=== PATIENT | female | born 1985 | race African-American/Black ===

== ENCOUNTER 2019-11-18 15:32 | Emergency (ER) | payer MEDICAID, OTHER ==
[~2019-11-18] VITALS: Ht 162.6 cm; Wt 76.0 kg
[2019-11-18] MEDS ORDERED: ACETAMINOPHEN 325MG TABLET PO ONE (18:15)
[2019-11-18] MEDS ORDERED: KETOROLAC 30MG/ML VIAL IM ONE (18:15)
[2019-11-18 18:38] LABS: BASOPHILS % 0.8 % (0.0-2.0); EOSINOPHILS % 0.3 % (0.0-5.0); HEMATOCRIT. 36.4 % (36.0-48.0); HEMOGLOBIN. 11.9 g/dL (12.0-16.0); LYMPHOCYTES % 21.5 % (20.0-50.0); MEAN CORPUSCULAR HEMOGLOBIN 28.1 pg (28.0-32.0); MEAN CORPUSCULAR VOLUME 85.9 fL (81.0-99.0); MEAN PLATELET VOLUME 6.8 fl (7.4-10.4); MONOCYTES % 5.5 % (2.0-8.0); NEUTROPHILS % 71.9 % (40.0-76.0); PLATELET 252 x1000/uL (130-400); RED BLOOD CELL COUNT 4.24 mill/uL (4.2-5.4); RED CELL DISTRIBUTION WIDTH 14.3 % (11.6-14.6)
[2019-11-18 18:45] LABS: CHLORIDE 108 mEq/L (98-107)
[2019-11-18 23:50] VITALS: BP 121/67
== END 2019-11-19 00:02 | disposition home or self-care (01) ==
LOC: ER 15:32
DX: R51 Headache (principal); R07.9 Chest pain, unspecified; F41.9 Anxiety disorder, unspecified
CPT/HCPCS: 36415; 71045; 80048; 84484; 85025; 93005; 96372; 99285; J1885

== ENCOUNTER 2025-02-23 20:23 | Emergency (ER) | payer MEDICAID, OTHER ==
[~2025-02-23] VITALS: Ht 167.6 cm; Wt 75.0 kg
[2025-02-23 20:25] VITALS: O2SAT 98
[2025-02-23 21:09] LABS: BASOPHILS % 0.3 % (0.0-2.0); EOSINOPHILS % 0.9 % (0.0-5.0); HEMATOCRIT. 36.2 % (36.0-48.0); HEMOGLOBIN. 11.4 g/dL (12.0-16.0); LYMPHOCYTES % 30.8 % (20.0-50.0); MEAN CORPUSCULAR HEMOGLOBIN 27.7 pg (28.0-32.0); MEAN CORPUSCULAR HGB CONC 31.6 g/dL (31.0-37.0); MEAN CORPUSCULAR VOLUME 87.7 fL (81.0-99.0); MEAN PLATELET VOLUME 6.7 fl (7.4-10.4); MONOCYTES % 5.2 % (2.0-8.0); NEUTROPHILS % 62.8 % (40.0-76.0); PLATELET 274 x1000/uL (130-400); RED BLOOD CELL COUNT 4.13 mill/uL (4.2-5.4); RED CELL DISTRIBUTION WIDTH 14.4 % (11.6-14.6); WHITE BLOOD COUNT 8.7 x1000/uL (4.5-11.0)
[2025-02-23 21:17] LABS: CHLORIDE 107 mEq/L (98-107); POTASSIUM 3.5 mEq/L (3.5-5.1); SODIUM 139 mEq/L (136-145)
[2025-02-23 21:18] LABS: CALCIUM 9.2 mg/dL (8.7-10.4); CARBON DIOXIDE 25 mEq/L (21-32)
[2025-02-23 21:19] LABS: PARTIAL THROMBOPLASTIN TIME 24.5 sec (23.4-31.0); PROTHROMBIN TIME 10.8 sec (9.6-11.0)
[2025-02-23 21:23] LABS: CREATININE 0.9 mg/dL (0.6-1.0); GLUCOSE 96 mg/dL (70-105); UREA NITROGEN BLOOD 10 mg/dL (9-23)
[2025-02-23 21:24] LABS: HCG SCREEN NEGATIVE
[2025-02-23 21:27] LABS: TROPONIN I HIGH SENSITIVITY < 4 ng/L (3.0-34)
[2025-02-23] MEDS: APIXABAN 5 MG TABLET PO ONE (22:41)
[2025-02-24 00:06] VITALS: BP 108/57; PULSE 85; RESP 14; TEMP 37.2; O2SAT 99
== END 2025-02-24 00:40 | disposition admitted as inpatient to this hospital (09) ==
LOC: ER 20:23
DX: I82.432 Acute embolism and thrombosis of left popliteal vein (principal); F41.9 Anxiety disorder, unspecified; M79.662 Pain in left lower leg; R26.2 Difficulty in walking, not elsewhere classified
CPT/HCPCS: 80048; 84703; 83880; 85025; 85610; 85730; 84484; 36415; 93971; 93005; 99285; Z7610 ×2; A4606